=== PATIENT | male | born 1985 | race Caucasian/White ===

== ENCOUNTER 2024-07-08 08:08 | Day surgery (SDC) | payer BC ==
[~2024-07-08] VITALS: Ht 177.8 cm; Wt 83.9 kg
[~2024-07-08 08:08] MED LIST: CEFAZOLIN SOD 2 GM in D5W 50 ML IV ONE
[2024-07-08] MEDS ORDERED: fentaNYL CITRATE/PF 100 MCG/2 ML AMP ONE (09:15)
[2024-07-08] MEDS ORDERED: MIDAZOLAM HCL 2 MG/2 ML VIAL (VERSED) ONE (09:16)
[2024-07-08] MEDS ORDERED: LIDOCAINE MPF 2% 20 MG/1 ML, 5 ML VIAL INH ONE (09:40)
[2024-07-08] MEDS ORDERED: WATER FOR IRRIGATION,STERILE 1,000 ML IRRIG.SOLN IR ONE (09:40)
[2024-07-08] MEDS ORDERED: BACITRACIN ZINC 15 GM TOPICAL OINTMENT TP ONE (09:40)
[2024-07-08] MEDS ORDERED: ONDANSETRON HCL 4 MG/2 ML VIAL ONE (09:40)
[2024-07-08] MEDS ORDERED: LR 1,000 ML IV.SOLN IV ONE (09:40)
[2024-07-08] MEDS ORDERED: PROPOFOL 200MG/ 20ML VIAL (DIPRIVAN) IV ONE (09:40)
[2024-07-08] MEDS ORDERED: NS IRRIG SOLN 1000 ML IR ONE (09:40)
[2024-07-08] MEDS ORDERED: SEVOFLURANE 15 MIN GAS INH ONE (09:40)
[2024-07-08] MEDS ORDERED: METOCLOPRAMIDE HCL 10 MG/2 ML VIAL ONE (09:40)
[2024-07-08] MEDS ORDERED: SUCCINYLCHOLINE CHLORIDE 20 MG/ML(QUELICIN) ONE (09:40)
[2024-07-08] MEDS ORDERED: ePHEDrine sulfate 50 MG/ML VIAL IVP PRN (11:45)
[2024-07-08] MEDS ORDERED: METOCLOPRAMIDE HCL 10 MG/2 ML VIAL IVP PRN (11:45)
[2024-07-08] MEDS ORDERED: ONDANSETRON HCL 4 MG/2 ML VIAL IVP PRN (11:45)
[2024-07-08] MEDS ORDERED: LABETALOL 100 MG/ 20ML VIAL IVP PRN (11:45)
[2024-07-08] MEDS ORDERED: HYDROmorphone 1 MG/ML INJ. CARTRIDGE IVP PRN ×2 (11:45)
[2024-07-08] MEDS: HYDROmorphone 1 MG/ML INJ. CARTRIDGE IVP PRN (12:10)
[2024-07-08] MEDS ORDERED: HYDROmorphone 1 MG/ML INJ. CARTRIDGE ONE (12:13)
[2024-07-08 12:43] VITALS: O2SAT 96
[2024-07-08 13:04] VITALS: BP_SYST 124; PULSE 78; RESP 14
== END 2024-07-08 13:15 | disposition home or self-care (01) ==
LOC: SDS 08:08 → SMU 08:09 → SDS 13:15
PROVIDERS: ATTEND Otolaryngology
DX: R22.0 Localized swelling, mass and lump, head (principal); L72.12 Trichodermal cyst; D23.20 Other benign neoplasm of skin of unspecified ear and external auricular canal; Z98.890 Other specified postprocedural states
CPT/HCPCS: 87081; 69110; 11426; 12032; 88305; J0690; J2765; J2250; J2405; J2704; J0330; J3010; J1171; J7060; J7120